=== PATIENT | female | born 1980 | race African-American/Black ===

== ENCOUNTER 2018-04-08 14:00 | Emergency (ER) | payer BC ==
[~2018-04-08] VITALS: Ht 160 cm; Wt 63.0 kg
[2018-04-08 16:27] VITALS: BP 109/68
== END 2018-04-08 16:25 | disposition home or self-care (01) ==
LOC: ER 14:13
DX: R07.89 Other chest pain (principal); R06.02 Shortness of breath
CPT/HCPCS: 93005; 99283